=== PATIENT | female | born 1975 | race African-American/Black ===

== ENCOUNTER 2017-06-19 16:49 | Emergency (ER) | payer MEDICAID ==
[~2017-06-19] VITALS: Ht 157.5 cm; Wt 57.5 kg
[2017-06-19 17:02] VITALS: BP 111/71
== END 2017-06-19 19:54 | disposition left against medical advice (07) ==
LOC: ER 16:49
DX: Z53.21 Procedure and treatment not carried out due to patient leaving prior to being seen by health care provider (principal)